=== PATIENT | female | born 1950 | race Caucasian/White ===

== ENCOUNTER 2020-10-27 17:43 | Emergency (ER) | payer OTHER ==
[2020-10-27] MEDS ORDERED: BAMLANIVIMAB 700 MG, ETESEVIMAB 1,400 MG in SODIUM CHLORIDE 250 ML IVPB ONE (17:57)
[2020-10-27 18:00] VITALS: BMI 33.3
[2020-10-27 18:39] LABS: BASO % 0.3 % (0-2.0); EOS % 1.9 % (0-4.5); HEMATOCRIT 47.2 % (32.4-45.2); HEMOGLOBIN 15.9 GM/dL (10.7-15.3); LYMPH % 32.4 % (8-40); MCH 32.6 pg (25.7-33.7); MCHC 33.6 g/dl (32.0-36.0); MEAN CELL VOLUME 96.9 fl (80-96); MEAN PLT VOLUME 9.8 fl (7.5-11.1); MONO % 9.9 % (3.8-10.2); NEUT % 55.5 % (42.8-82.8); PLATELET COUNT 264 K/MM3 (134-434); RBC 4.87 M/mm3 (3.60-5.2); RDW 12.9 % (11.6-15.6); WHITE BLOOD COUNT 7.8 K/mm3 (4.0-10.0)
[2020-10-27 18:51] VITALS: TEMP 98.5
[2020-10-27 18:55] LABS: CALCIUM 11.5 mg/dL (8.5-10.1); POTASSIUM 3.7 mmol/L (3.5-5.1)
[2020-10-27 18:56] LABS: ALBUMIN 3.8 g/dl (3.4-5.0)
[2020-10-27 18:59] LABS: CREATININE 0.7 mg/dL (0.55-1.3)
[2020-10-27 19:01] LABS: BILIRUBIN,TOTAL 0.3 mg/dL (0.2-1); TOT PROT 7.8 g/dl (6.4-8.2)
[2020-10-27 20:40] LABS: POTASSIUM 3.8 mmol/L (3.5-5.1)
[2020-10-27 20:42] LABS: CALCIUM 11.1 mg/dL (8.5-10.1)
[2020-10-27 20:43] LABS: ALBUMIN 3.9 g/dl (3.4-5.0); BLOOD UREA NITROGEN 12.6 mg/dL (7-18)
[2020-10-27 20:46] LABS: CREATININE 0.7 mg/dL (0.55-1.3)
[2020-10-27 20:47] LABS: BILIRUBIN,TOTAL 0.3 mg/dL (0.2-1); TOT PROT 7.8 g/dl (6.4-8.2)
[2020-10-27 21:19] VITALS: BP 172/76; PULSE 78
== END 2020-10-27 21:19 | disposition home or self-care (01) ==
LOC: JER 17:43
DX: U07.1 COVID-19 (principal); G44.89 Other headache syndrome
CPT/HCPCS: 36415; 71046-TC-FY; 80053; 85025; 99284-25; M0239; Q0239; Q0245